=== PATIENT | male | born 1960 | race Caucasian/White ===

== ENCOUNTER → 2017-05-12 | Outpatient (CLI) | payer SELFPAY ==
[~2017-05-12] MED LIST: ALPR0.5T8 PO; GABA300S PO; OMEP40CA37 PO; THYR32.4 PO; TRAM50TA4 PO
== END | disposition home or self-care (01) ==
LOC: OIH 08:10
PROVIDERS: ATTEND Neurological Surgery
DX: M47.892 Other spondylosis, cervical region (principal); M43.22 Fusion of spine, cervical region; Z98.890 Other specified postprocedural states
CPT/HCPCS: 72040

== ENCOUNTER → 2017-08-11 | Outpatient (CLI) | payer BC | END | disposition home or self-care (01) | LOC: OIH 08:18 | PROVIDERS: ATTEND Neurological Surgery | DX: M47.892 Other spondylosis, cervical region (principal) | CPT/HCPCS: 72040 ==

== ENCOUNTER → 2019-02-07 | Outpatient (CLI) | payer BC ==
[~2019-02-07] MED LIST changes: +GADODIAMIDE 10 MMOL/20 ML VIAL IV ONE; +OMEP40CA13 PO; -OMEP40CA37 PO
== END | disposition home or self-care (01) ==
LOC: RAH 08:36
PROVIDERS: ATTEND Neurological Surgery
DX: M47.22 Other spondylosis with radiculopathy, cervical region (principal); M48.02 Spinal stenosis, cervical region
CPT/HCPCS: 72040; 72156; A9579

== ENCOUNTER → 2020-11-05 | Outpatient (CLI) | payer BC ==
[~2020-11-05] MED LIST changes: -GADODIAMIDE 10 MMOL/20 ML VIAL IV ONE; -OMEP40CA13 PO; +OMEP40CA21 PO
[2020-11-05 16:19] LABS: BASOPHILS % (AUTO) 0.7 % (0.0-5.0); EOSINOPHILS % (AUTO) 4.4 % (0.0-8.0); HEMATOCRIT 42.1 % (42-54); LYMPHOCYTES % (AUTO) 34.8 % (21.0-51.0); MEAN CORPUSCULAR HEMOGLOBIN 30.9 pg (27.0-33.0); MEAN CORPUSCULAR HGB CONC 32.8 g/dL (32.0-36.0); MEAN CORPUSCULAR VOLUME 94.4 fL (79-99); MONOCYTES % (AUTO) 11.1 % (3.0-13.0); NEUTROPHILS % (AUTO) 48.8 % (40.0-77.0); PLATELET COUNT (AUTO) 156 K/uL (130-400); RED BLOOD CELL COUNT(AUTO) 4.46 MIL/uL (4.50-6.20); WHITE BLOOD COUNT (AUTO) 5.9 K/uL (4.8-10.8)
[2020-11-05 16:29] LABS: CREATININE 1.3 mg/dL (0.5-1.5)
[2020-11-05 16:33] LABS: ALBUMIN 3.4 g/dL (3.5-5.0); BILIRUBIN,TOTAL 0.5 mg/dL (0.2-1.0); CREATININE 1.3 mg/dL (0.5-1.5); CRP QUANTITATIVE 4.2 mg/L (0.00-9.0); POTASSIUM 3.9 mmol/L (3.5-5.1); TOTAL PROTEIN, SERUM 7.9 g/dL (6.0-8.3)
[2020-11-05 17:40] LABS: ERYTHROCYTE SEDIMENTATION RATE 10 MM/HR (0-20)
== END | disposition home or self-care (01) ==
LOC: LAB 15:43
PROVIDERS: ATTEND Internal Medicine Infectious Disease
DX: E55.9 Vitamin D deficiency, unspecified (principal); M47.22 Other spondylosis with radiculopathy, cervical region; R10.9 Unspecified abdominal pain; M48.9 Spondylopathy, unspecified
CPT/HCPCS: 36415; 80053; 82306; 82565; 84520; 85025; 85651; 86140

== ENCOUNTER → 2020-11-25 | Outpatient (CLI) | payer BC ==
[~2020-11-25] MED LIST changes: +GADOTERATE MEGLUMINE 10 MMOL/20 ML VIAL IV ONE
== END | disposition home or self-care (01) ==
LOC: RAH 13:38
PROVIDERS: ATTEND Neurological Surgery
DX: M47.22 Other spondylosis with radiculopathy, cervical region (principal); M48.02 Spinal stenosis, cervical region
CPT/HCPCS: 72156; A9575